=== PATIENT | female | born 1945 | race Caucasian/White ===

== ENCOUNTER 2017-01-10 08:20 | Outpatient (CLI) | payer MEDICARE, MEDICAID | END 2017-01-10 08:21 | disposition home or self-care (01) | DX: R10.9 Unspecified abdominal pain (principal); E03.9 Hypothyroidism, unspecified; E78.5 Hyperlipidemia, unspecified; E04.2 Nontoxic multinodular goiter ==

== ENCOUNTER 2017-01-10 09:08 | Emergency (ER) | payer MEDICARE, MEDICAID ==
[2017-01-10] MEDS ORDERED: NITROFURANTOIN MACRO 100 MG CAPSULE PO STA (12:05)
[2017-01-10] MEDS ORDERED: NITROFURANTOIN MACRO 100 MG CAPSULE PO ONE (12:08)
[2017-01-10] MEDS ORDERED: ONDANSETRON ODT 4 MG TABLET TL STA (13:01)
[2017-01-10] MEDS ORDERED: ONDANSETRON ODT 4 MG TABLET ONE (13:11)
== END 2017-01-10 13:48 | disposition home or self-care (01) ==
DX: N30.00 Acute cystitis without hematuria (principal); R10.84 Generalized abdominal pain; E03.9 Hypothyroidism, unspecified; E04.2 Nontoxic multinodular goiter; E78.5 Hyperlipidemia, unspecified
CPT/HCPCS: 36415; 76705; 80053; 80061; 81001; 83690; 84439; 84443; 85025; 87086; 99283; 99284; A9270; Q0162

== ENCOUNTER 2017-01-13 08:19 | Outpatient (CLI) | payer MEDICARE, MEDICAID | END 2017-01-13 08:20 | disposition home or self-care (01) | DX: R10.9 Unspecified abdominal pain (principal) ==

== ENCOUNTER 2017-01-30 18:52 | Outpatient (CLI) | payer MEDICARE, MEDICAID | END 2017-01-30 18:53 | disposition home or self-care (01) | DX: D25.1 Intramural leiomyoma of uterus (principal); R10.2 Pelvic and perineal pain; Z90.721 Acquired absence of ovaries, unilateral ==

== ENCOUNTER 2017-02-21 14:10 | Outpatient (CLI) | payer MEDICARE, MEDICAID | END 2017-02-21 14:11 | disposition home or self-care (01) | DX: E04.2 Nontoxic multinodular goiter (principal); E03.9 Hypothyroidism, unspecified ==

== ENCOUNTER 2017-12-08 10:04 | Outpatient (CLI) | payer MEDICARE, MEDICAID ==
[2017-12-08 18:46] LABS: THYROID STIMULATING HORMONE 5.12 uIU/mL (0.34-5.60)
[2017-12-08 18:48] LABS: FREE T4 (FREE THYROXINE) 0.89 ng/dL (0.58-1.64)
== END 2017-12-08 10:05 | disposition home or self-care (01) ==
LOC: LAB.F 10:04
PROVIDERS: ATTEND Nurse Practitioner Family
DX: E04.2 Nontoxic multinodular goiter (principal)
CPT/HCPCS: 36415; 84439; 84443

== ENCOUNTER 2018-01-17 10:56 | Outpatient (CLI) | payer MEDICARE, MEDICAID ==
--- NOTE | 2018-01-17 21:12 | Ultrasound Report ---
EXAM: THYROID ULTRASOUND EXAM DATE: 01/17/2018 11:35 AM. CLINICAL HISTORY: Multinodular thyroid goiter. COMPARISON: 04/11/2016. TECHNIQUE: Real time sonographic imaging of the thyroid was performed by the document review specialist. Multiple re presentative static images were saved for review. FINDINGS: THYROID GLAND: Right Lobe: 4.7 x 1.9 x 1.9 cm, volume 8.8 cc. Diffusely heterogeneous echotexture. Right Lobe Nodules: Echogenic mid to lower thyroid nodule with irregular margins, 0.9 x 0.9 x 0.75 cm , slightly larger. Left Lobe: 4.8 x 2.2 x 1.9 cm, volume 10.6 cc. Diffusely heterogeneous echotexture. Left Lobe Nodules: Echogenic lower pole nodule with irregular margins, 1.2 x 1.0 x 0.8 cm, stable. Isthmus: 0.25 cm AP. Isthmic Nodules: None. LYMPH NODES: No adenopathy demonstrated in the central or lateral compartment. OTHER: None. IMPRESSION: Heterogeneous prominent thyroid with single echogenic nodule bilaterally, slightly larger on the righ t, stable on the left, low suspicion. Management recommendations are based on 2015 [place] [employer] Management Guidelines for A dult Patients with Thyroid Nodules and Differentiated Thyroid Cancer. [facility] Referring Provider Line: [phone] SITE ID: [id number]
== END 2018-01-17 10:57 | disposition home or self-care (01) ==
LOC: DI 10:56
PROVIDERS: ATTEND Nurse Practitioner Family
DX: E04.2 Nontoxic multinodular goiter (principal)
CPT/HCPCS: 76536

== ENCOUNTER 2018-05-01 09:42 | Outpatient (CLI) | payer MEDICARE, MEDICAID ==
[2018-05-01 18:35] LABS: ALBUMIN/GLOBULIN RATIO 1.2 (1.0-2.2); ALKALINE PHOSPHATASE 49 IU/L (42-121); ALT ALANINE AMINOTRANSFERASE 23 IU/L (10-60); AST ASPARTATE AMINOTRANSFERASE 27 IU/L (10-42); BILIRUBIN,TOTAL 0.9 mg/dL (0.2-1.0); BUN - BLOOD UREA NITROGEN 12 mg/dL (6-20); CARBON DIOXIDE - CO2 28 mmol/L (21-32); CHLORIDE 99 mmol/L (101-111); CHOL/HDL RATIO 2.7 (<4.4); CHOLESTEROL 187 mg/dL; CREATININE 0.9 mg/dL (0.4-1.0); GFR - MDRD 62 (>89); GLUCOSE 90 mg/dL (70-100); HDL CHOLESTEROL 70 mg/dL; LDL CHOLESTEROL,CALCULATED 98 mg/dL; LDL/HDL RATIO 1.4 (<4.4); SODIUM 134 mmol/L (135-145); TOTAL PROTEIN 7.4 g/dL (6.7-8.2); VLDL CHOLESTEROL 19 mg/dL
== END 2018-05-01 09:43 | disposition home or self-care (01) ==
LOC: LAB.F 09:42
PROVIDERS: ATTEND Nurse Practitioner Family
DX: E78.5 Hyperlipidemia, unspecified (principal); E03.9 Hypothyroidism, unspecified; E04.2 Nontoxic multinodular goiter; Z13.1 Encounter for screening for diabetes mellitus
CPT/HCPCS: 36415; 80053; 80061; 83721; 84443

== ENCOUNTER 2018-11-30 08:00 | Outpatient (CLI) | payer MEDICARE, MEDICAID ==
[2018-12-01 10:59] LABS: THYROID STIMULATING HORMONE 1.12 uIU/mL (0.34-5.60)
[2018-12-01 11:01] LABS: FREE T4 (FREE THYROXINE) 0.94 ng/dL (0.58-1.64)
== END 2018-11-30 23:59 | disposition home or self-care (01) ==
LOC: LAB.S 08:00
PROVIDERS: ATTEND Nurse Practitioner Family
DX: E03.9 Hypothyroidism, unspecified (principal)
CPT/HCPCS: 36415; 84439; 84443

== ENCOUNTER 2019-05-13 08:00 | Outpatient (CLI) | payer MEDICARE, MEDICAID | END 2019-05-13 23:59 | disposition home or self-care (01) | LOC: LAB.F 08:00 | PROVIDERS: ATTEND Internal Medicine | DX: E03.9 Hypothyroidism, unspecified (principal) | CPT/HCPCS: 36415; 84443 ==

== ENCOUNTER 2019-05-26 10:45 | Outpatient (CLI) | payer MEDICARE, MEDICAID ==
--- NOTE | 2019-05-26 15:12 | Ultrasound Report ---
Reason: MULTINODULAR THYROID GOITER Procedure Date: 05/26/2019 Accession Number: [id number] / [id number] Procedure: US - Head or Neck Soft Tissue CPT Code: FULL RESULT: EXAM: THYROID ULTRASOUND EXAM DATE: 05/26/2019 12:42 PM. CLINICAL HISTORY: MULTINODULAR THYROID GOITER. For follow-up COMPARISON: 01/17/2018 and 04/11/2016 thyroid ultrasound. TECHNIQUE: Real time sonographic imaging of the thyroid was performed by the finance professor. Multiple sales representative [employer] static images were saved for review. FINDINGS: THYROID GLAND: Right Lobe: 5.1 x 2.2 x 1.6 cm, volume 9 cc. Heterogeneous background echotexture. Right Lobe Nodules: Hyperechoic lower pole 1.2 x 0.9 x 0.8 cm nodule. Left Lobe: 4.6 x 2.1 x 1.6 cm, volume 8 cc. Heterogeneous background echotexture. Left Lobe Nodules: 1.2 x 1 x 0.9 cm hyperechoic inferior pole nodule.. Isthmus: 0.2 cm AP. Isthmic Nodules: None. LYMPH NODES: No pathologic adenopathy demonstrated in the central or lateral compartment. OTHER: None. IMPRESSION: Heterogenous thyroid with dominant echogenic nodule in each lobe, not appreciably changed compared with priors. Low suspicion. Management recommendations are based on 2015 [place] [employer] Management Guidelines for Adult Patients with Thyroid Nodules and Differentiated Thyroid Cancer. [facility]
== END 2019-05-26 10:46 | disposition home or self-care (01) ==
LOC: DI 10:45
PROVIDERS: ATTEND Internal Medicine
DX: E04.2 Nontoxic multinodular goiter (principal)
CPT/HCPCS: 76536

== ENCOUNTER 2020-02-01 13:24 | Outpatient (CLI) | payer MEDICARE, MEDICAID ==
--- NOTE | 2020-02-02 05:29 | XRAY Report ---
Reason: NECK PAIN Procedure Date: 02/01/2020 Accession Number: [id number] / [id number] Procedure: XR - Cervical Spine 2 View CPT Code: Final Report FULL RESULT: EXAM: CERVICAL SPINE RADIOGRAPHY EXAM DATE: 02/01/2020 01:53 PM. CLINICAL HISTORY: NECK PAIN. COMPARISONS: None. TECHNIQUE: 3 views. FINDINGS: Alignment: Normal. No spondylolisthesis or scoliosis. Bones: The cervical vertebral bodies and posterior elements are well visualized from the skull base through C7-T1. No fractures or bone lesions. Disks: Moderate disk height loss is visualized at C5-C6 and C6-C7. Mild disk height loss is noted at C4-C5. There is significant associated endplate sclerosis, irregularity and osteophytosis most pronounced at C5-C6. Facets: Multilevel facet hypertrophy is visualized throughout the cervical spine, most pronounced on the left at C3-C4. Soft Tissues: Normal. No prevertebral soft tissue swelling. The visualized lung apices are clear. IMPRESSION: 1. No evidence of acute pathology in the cervical spine. 2. Moderate multilevel cervical spondylosis most pronounced at C5-C6. 3. Multilevel facet arthropathy, most notably on the left at C3-C4. [facility]
--- NOTE | 2020-02-02 17:14 | XRAY Report ---
Reason: SHOULDER PAIN Procedure Date: 02/01/2020 Accession Number: [id number] / [id number] Procedure: XR - Shoulder 3 View RT CPT Code: Final Report FULL RESULT: EXAM: RIGHT SHOULDER RADIOGRAPHY EXAM DATE: 02/01/2020 01:32 PM. CLINICAL HISTORY: Shoulder pain. COMPARISON: None. TECHNIQUE: 3 views. FINDINGS: Bones: Normal. No fracture or bone lesion. Joints: The glenohumeral and acromioclavicular joints are normally aligned. Moderate acromioclavicular degenerative changes. Mild glenohumeral degenerative changes. Soft tissues: The visualized hemithorax is unremarkable. No soft tissue swelling. IMPRESSION: Mild to moderate degenerative changes about the right shoulder without acute abnormality seen. [facility]
== END 2020-02-01 13:25 | disposition home or self-care (01) ==
LOC: DI 13:24
PROVIDERS: ATTEND Family Medicine
DX: M47.812 Spondylosis without myelopathy or radiculopathy, cervical region (principal); M50.321 Other cervical disc degeneration at C4-C5 level; M19.011 Primary osteoarthritis, right shoulder
CPT/HCPCS: 72040

== ENCOUNTER 2020-05-23 13:58 | Outpatient (CLI) | payer MEDICARE, MEDICAID ==
--- NOTE | 2020-05-23 16:48 | Ultrasound Report ---
PROCEDURE: Head or Neck Soft Tissue INDICATIONS: MULTINODULAR THYROID GOITER TECHNIQUE: Real-time scanning was performed of the thyroid gland, with image documentation. COMPARISON: Thyroid ultrasound 05/26/2019, 01/17/2018, 04/11/2016, 03/16/2015 FINDINGS: Right: Thyroid lobe measures 5.5 x 2.5 x 1.5 cm, and is heterogeneous in echotexture. Left: Thyroid lobe measures 4.6 x 2.3 x 1.4 cm, and is heterogeneous in echotexture. Isthmus: 2 mm thick. Nodule number: One Location: Right mid Size: 0.7 x 0.5 x 0.5 cm. Composition: Solid Echogenicity: Hyperechoic Shape: wider than tall. Margins: Smooth Echogenic foci: None Total points: 3 ACR TI-RADS category: 3 Nodule number: Two Location: Right inferior Size: 0.8 x 0.9 x 0.7 cm compared to 0.9 x 1.2 x 0.8 cm. Composition: Solid Echogenicity: Hyperechoic Shape: wider than tall. Margins: Smooth Echogenic foci: None Total points: 3 ACR TI-RADS category: 3 Nodule number: Three Location: Left lobe Size: 1.2 x 1.4 x 0.9 cm compared to 1.2 x 1.4 x 0.9 cm. Composition: Solid Echogenicity: Hyperechoic Shape: wider than tall. Margins: Smooth Echogenic foci: None Total points: 3 ACR TI-RADS category: 3 IMPRESSION: 1. Lesion #3 has been stable since 2014. It is considered category 3. No additional follow-up is elijah mmended. 2. Lesion # 2 also appears to been present since 2014. It is considered category 3. No additional fol low-up is recommended. 3. Lesion #1 appears new. It is considered category 3. Secondary to small size, no additional follow- up is recommended. ACR TI-RADS definitions and recommendations: TI-RADS 1 (benign): 0 points. FNA not needed. TI-RADS 2 (not suspicious): 2 points. FNA not needed. TI-RADS 3 (mildly suspicious): 3 points. ? FNA if 2.5 cm or larger, follow up if 1.5 cm or larger (at 1, 3, and 5 years). TI-RADS 4 (moderately suspicious): 4-6 points. ? FNA if 1.5 cm or larger, follow up if 1 cm or larger (at 1, 2, 3, and 5 years). TI-RADS 5 (highly suspicious): 7 points or more. ? FNA if 1 cm or larger, follow up if 0.5 cm or larger (every year for 5 years). Reviewed by: Maria Dolores Ferreira MD on 05/23/2020 4:47 PM PDT Approved by: Maria Dolores Ferreira MD on 05/23/2020 4:47 PM PDT Station ID: [id number]
== END 2020-05-23 13:59 | disposition home or self-care (01) ==
LOC: DI 13:58
PROVIDERS: ATTEND Registered Nurse
DX: E04.2 Nontoxic multinodular goiter (principal)
CPT/HCPCS: 76536

== ENCOUNTER 2020-06-05 12:58 | Outpatient (CLI) | payer MEDICARE, MEDICAID ==
--- NOTE | 2020-06-05 14:41 | MRI Report ---
PROCEDURE: Shoulder RT W/O INDICATIONS: RT SHOULDER PAIN TECHNIQUE: Noncontrast oblique coronal T2 fast spin echo with fat saturation, oblique sagittal T1 spin echo and T2 fast spin echo with fat saturation, axial T1 spin echo and T2 fast spin echo with fat saturation t hrough the shoulder. COMPARISON: Shoulder radiograph dated 02/01/2020. FINDINGS: Image quality: Excellent. Rotator cuff: There is tendinosis and moderate grade articular and bursal surface partial-thickness t ear involving distal supraspinatus at its insertion on humeral head extending to musculotendinous willem ction. Distal infraspinatus tendinosis and low-grade articular surface partial-thickness tear is seen . Tendinosis and low-grade intrasubstance partial thickness tear involving superior to mid fibers of distal subscapularis is noted. Mild supraspinatus muscle atrophy is seen on sagittal images. Bones and bursae: No bone marrow contusions or fractures. There is moderate acromioclavicular joint osteoarthritis with downward osteophyte formation depressing on musculotendinous junction of supraspi natus. Moderate amount of glenohumeral joint effusion and subacromial subdeltoid bursal fluid is seen . Fluid is also seen in subcoracoid bursa. There is suggestion of intra-articular loose body in anter ior and lateral aspect of joint space measures 5 mm in size. Capsule and soft tissues: In the absence of intra-articular contrast, there is suggestion of subtle superior anterior labral tear at 12 to 1:00 position. The glenohumeral ligaments appear intact. The long head of the biceps tendinosis is seen. The rotator interval appears normal, without fibrosis. T he coracohumeral ligament is normal in thickness. IMPRESSION: 1. Tendinosis and moderate grade articular and bursal surface partial-thickness tear involving distal supraspinatus extending to musculotendinous junction. Distal infraspinatus tendinosis and low-grade articular surface partial-thickness tear. Tendinosis and low-grade intrasubstance partial thickness i nvolving superior to mid fibers of distal subscapularis. Mild supraspinatus muscle atrophy. 2. Moderate acromioclavicular joint osteoarthritis. Moderate amount of joint fluid and subacromial simpson bdeltoid bursal fluid. Suggestion of 5 mm intra-articular loose body in anterior and lateral aspect o f glenohumeral joint space. 3. Suggestion of subtle superior anterior labral tear at 12 to 1:00 position. 4. Proximal intra-articular portion of long head of biceps tendinosis. Reviewed by: Julius Ortega MD on 06/05/2020 2:40 PM PDT Approved by: Julius Ortega MD on 06/05/2020 2:40 PM PDT Station ID: [id number]
== END 2020-06-05 12:59 | disposition home or self-care (01) ==
LOC: DI 12:58
PROVIDERS: ATTEND Registered Nurse
DX: M75.101 Unspecified rotator cuff tear or rupture of right shoulder, not specified as traumatic (principal); M75.81 Other shoulder lesions, right shoulder; M19.011 Primary osteoarthritis, right shoulder

== ENCOUNTER 2020-07-21 10:30 | Outpatient (CLI) | payer MEDICARE, MEDICAID ==
--- NOTE | 2020-07-24 10:34 | Mammography Report ---
BILATERAL DIGITAL SCREENING MAMMOGRAM 3D/2D: 07/21/2020 CLINICAL: Routine screening. Comparison is made to exams dated: 11/10/2015 ultrasound, 11/10/2015 mammogram, 12/13/2014 mammogram, 05/06/2013 mammogram, 09/13/2011 mammogram, and 04/25/2010 mammogram - [facility]. T here are scattered fibroglandular elements in both breasts. No significant masses, calcifications, or other findings are seen in either breast. There has been no significant interval change. IMPRESSION: NEGATIVE There is no mammographic evidence of malignancy. A 1 year screening mammogram is recommended. This exam was interpreted at Station ID: [id number]. NOTE: For mammograms, a report in lay terms will be sent to the patient. Approximately 15% of breast malignancies will not be visualized mammographically. In the management of a palpable breast mass, a negative mammogram must not discourage biopsy of a clinically suspicious lesion. Electronically Signed By: Marty rob/amanda:07/21/2020 13:23:02 ACR BI-RADS Category 1: Negative [id number] PARENCHYMAL PATTERN: (A) - The breast(s) demonstrate(s) scattered fibroglandular densities. BI-RADS CATEGORY: (1) - 1 RECOMMENDATION: (ANNUAL) - Recommend routine annual screening mammography. [id number] 1 year screening LATERALITY: (B)
== END 2020-07-21 10:31 | disposition home or self-care (01) ==
LOC: DI 10:30
PROVIDERS: ATTEND Registered Nurse
DX: Z12.31 Encounter for screening mammogram for malignant neoplasm of breast (principal)
CPT/HCPCS: 77063; 77067

== ENCOUNTER 2020-11-07 10:30 | Outpatient (CLI) | payer MEDICARE, MEDICAID | END 2020-11-07 10:31 | disposition home or self-care (01) | LOC: COV 10:30 | PROVIDERS: ATTEND Family Medicine | DX: J02.9 Acute pharyngitis, unspecified (principal); R11.2 Nausea with vomiting, unspecified; Z20.828 Contact with and (suspected) exposure to other viral communicable diseases ==

== ENCOUNTER 2020-11-09 12:38 | Outpatient (CLI) | payer MEDICARE, MEDICAID | END 2020-11-09 23:59 | disposition home or self-care (01) | LOC: LAB.R 12:38 | PROVIDERS: ATTEND Physician Assistant | DX: N30.00 Acute cystitis without hematuria (principal) | CPT/HCPCS: 87086 ==

== ENCOUNTER 2020-12-05 08:00 | Outpatient (CLI) | payer MEDICARE, MEDICAID | END 2020-12-05 23:59 | disposition home or self-care (01) | LOC: LAB.R 08:00 | PROVIDERS: ATTEND Registered Nurse | DX: N39.0 Urinary tract infection, site not specified (principal); L57.0 Actinic keratosis | CPT/HCPCS: 81002 ==

== ENCOUNTER 2021-01-02 11:47 | Outpatient (CLI) | payer MEDICARE, MEDICAID | END 2021-01-02 11:48 | disposition home or self-care (01) | LOC: COV 11:47 | PROVIDERS: ATTEND Family Medicine | DX: R09.81 Nasal congestion (principal); J34.89 Other specified disorders of nose and nasal sinuses; R11.2 Nausea with vomiting, unspecified; Z20.822 Contact with and (suspected) exposure to COVID-19 ==

== ENCOUNTER 2021-07-08 08:00 | Outpatient (CLI) | payer MEDICARE, MEDICAID | END 2021-07-08 23:59 | disposition home or self-care (01) | LOC: LAB.S 08:00 | PROVIDERS: ATTEND Emergency Medicine | DX: R07.0 Pain in throat (principal); Z20.822 Contact with and (suspected) exposure to COVID-19 ==

== ENCOUNTER 2021-07-13 07:42 | Outpatient (CLI) | payer MEDICARE, MEDICAID ==
[2021-07-13 14:29] LABS: BASOPHILS # (AUTO) 0.1 10^3/uL (0.0-0.1); BASOPHILS % (AUTO) 1.3 %; EOSINOPHILS # (AUTO) 0.1 10^3/uL (0.0-0.7); EOSINOPHILS % (AUTO) 2.2 %; HCT - HEMATOCRIT 40.1 % (37.0-47.0); HGB - HEMOGLOBIN 13.4 g/dL (12.0-16.0); LYMPHOCYTES # (AUTO) 2.5 10^3/uL (1.5-3.5); LYMPHOCYTES % (AUTO) 45.9 %; MEAN CORPUSCULAR HEMOGLOBIN 30.4 pg (27.0-31.0); MEAN CORPUSCULAR HGB CONC 33.4 g/dL (32.0-36.0); MEAN CORPUSCULAR VOLUME 90.9 fL (81.0-99.0); MEAN PLATELET VOLUME 9.1 fL (7.9-10.8); MONOCYTES # (AUTO) 0.4 10^3/uL (0.0-1.0); MONOCYTES % (AUTO) 7.2 %; NEUTROPHILS # (AUTO) 2.3 10^3/uL (1.5-6.6); PLT - PLATELET COUNT 300 10^3/uL (130-450); RED BLOOD COUNT 4.41 10^6/uL (4.20-5.40); WHITE BLOOD COUNT 5.4 x10^3/uL (4.8-10.8)
[2021-07-13 14:58] LABS: ALBUMIN/GLOBULIN RATIO 1.3 (1.0-2.2); ALKALINE PHOSPHATASE 73 IU/L (42-121); ALT ALANINE AMINOTRANSFERASE 21 IU/L (10-60); AST ASPARTATE AMINOTRANSFERASE 23 IU/L (10-42); BILIRUBIN,TOTAL 0.6 mg/dL (0.2-1.0); BUN - BLOOD UREA NITROGEN 8 mg/dL (6-20); CALCIUM 9.4 mg/dL (8.5-10.3); CARBON DIOXIDE - CO2 31 mmol/L (21-32); CHLORIDE 100 mmol/L (101-111); CHOL/HDL RATIO 2.6 (<4.4); CHOLESTEROL 190 mg/dL; CREATININE 0.6 mg/dL (0.4-1.0); GFR - MDRD 98 (>89); GLUCOSE 99 mg/dL (70-100); HDL CHOLESTEROL 74 mg/dL; LDL CHOLESTEROL,CALCULATED 102 mg/dL; LDL/HDL RATIO 1.4 (<4.4); POTASSIUM 3.3 mmol/L (3.5-5.0); SODIUM 138 mmol/L (135-145); TOTAL PROTEIN 7.2 g/dL (6.7-8.2); TRIGLYCERIDES 70 mg/dL; VLDL CHOLESTEROL 14 mg/dL
[2021-07-13 15:04] LABS: THYROID STIMULATING HORMONE 0.63 uIU/mL (0.34-5.60)
== END 2021-07-13 07:43 | disposition home or self-care (01) ==
LOC: LAB.S 07:42
PROVIDERS: ATTEND Physician Assistant
DX: K59.09 Other constipation (principal); F41.1 Generalized anxiety disorder; M54.2 Cervicalgia; E78.5 Hyperlipidemia, unspecified; E03.9 Hypothyroidism, unspecified; E04.2 Nontoxic multinodular goiter
CPT/HCPCS: 36415; 80053; 80061; 83721; 84443; 85025

== ENCOUNTER → 2021-09-14 | Outpatient (CLI) | payer MEDICARE, MEDICAID | LOC: LAB 08:00 | PROVIDERS: ATTEND Emergency Medicine | DX: R07.0 Pain in throat (principal); Z20.822 Contact with and (suspected) exposure to COVID-19 | CPT/HCPCS: 87070; U0004 ==

== ENCOUNTER 2021-11-15 08:00 | Outpatient (CLI) | payer MEDICARE, MEDICAID | END 2021-11-15 23:59 | disposition home or self-care (01) | LOC: LAB.S 08:00 | PROVIDERS: ATTEND Emergency Medicine | DX: R07.0 Pain in throat (principal); Z20.822 Contact with and (suspected) exposure to COVID-19 | CPT/HCPCS: 87070; U0004 ==